=== PATIENT | male | born 2000 | race African-American/Black ===

== ENCOUNTER 2022-06-16 15:58 | Emergency (ER) | payer SELFPAY ==
[2022-06-16 17:14] LABS: HEMOGLOBIN 14.8 gm/dl (14.0-17.5); RED BLOOD COUNT 4.96 M/UL (4.20-5.50); WHITE BLOOD COUNT 7.1 K/UL (4.5-11.0)
[2022-06-16 17:29] LABS: BUN/CREATININE RATIO 13 (0-10)
[2022-06-16] MEDS ORDERED: VIBRAMYCIN100 MG PO (20:00)
== END 2022-06-16 20:30 | disposition home or self-care (01) ==
LOC: ER1 15:58
PROVIDERS: Emergency Medicine
DX: N45.2 Orchitis (principal)
CPT/HCPCS: 76870; 80053; 81001; 83690; 85025; 96372; 99284; J0696